=== PATIENT | female | born 1965 | race Asian ===

== ENCOUNTER 2018-10-17 20:51 | Emergency (ER) | payer OTHER ==
[~2018-10-17] VITALS: Ht 160 cm; Wt 57.2 kg
[~2018-10-17 20:51] MED LIST: LEXAPRO10 MG PO
[2018-10-17 21:02] VITALS: Ht 160 cm; Wt 57.2 kg
[2018-10-17 23:36] VITALS: BP 112/70
== END 2018-10-17 23:49 | disposition home or self-care (01) ==
LOC: ED 20:51
DX: S82.832A Other fracture of upper and lower end of left fibula, initial encounter for closed fracture (principal); S82.55XA Nondisplaced fracture of medial malleolus of left tibia, initial encounter for closed fracture; W19.XXXA Unspecified fall, initial encounter; Y93.89 Activity, other specified; Y92.89 Other specified places as the place of occurrence of the external cause; Y99.8 Other external cause status
CPT/HCPCS: Q0162